=== PATIENT | female | born 1940 | race Caucasian/White ===

== ENCOUNTER → 2016-11-14 | Outpatient (CLI) | payer MEDICARE ==
[~2016-11-14] MED LIST: ASPI-496 PO; CELE200C PO; DIAZ5TAB PO; DOCU-131 PO; FLUO20TA25 PO; IBUP1TAB11 PO; LOVA40TA2 PO; METO25TA91 PO; ONDA4TAB7 PO; OXYC5CAP2 PO; TRAM50TA2 PO; TRIA1TAB3 PO
[2016-11-14 12:46] LABS: HEMATOCRIT 47.4 % (34.6-47.8); HEMOGLOBIN 15.9 g/dL (11.7-16.4); WHITE BLOOD COUNT 8.6 x10^3/uL (3.4-10)
[2016-11-14 12:56] LABS: BLOOD UREA NITROGEN 18 mg/dL (7-18)
[2016-11-14 13:00] LABS: ASPARTATE AMINO TRANSFERASE 11 U/L (15-37)
[2016-11-14 13:06] LABS: HIV 1&2 ANTIBODY SCREEN Nonreactive (Nonreactive); HIV-1 p24 ANTIGEN Nonreactive (Nonreactive)
== END | disposition home or self-care (01) ==
LOC: STAR 11:25
PROVIDERS: ATTEND Orthopaedic Surgery
DX: Z01.818 Encounter for other preprocedural examination (principal); M16.12 Unilateral primary osteoarthritis, left hip; R79.89 Other specified abnormal findings of blood chemistry; R79.1 Abnormal coagulation profile; Z11.4 Encounter for screening for human immunodeficiency virus [HIV]
CPT/HCPCS: 36415; 80053; 83036; 85025; 85610; 85730; 86703; 87081; 87147; 87899; 93005; G0435